=== PATIENT | male | born 2000 | race African-American/Black ===

== ENCOUNTER 2025-01-24 23:10 | Emergency (ER) | payer SELFPAY ==
--- OUTSIDE RECORDS SUMMARY | 2025-01-24 23:24 | XMS_ITS | Encounter Summary ---
Author Organization [facility] Address [facility] [place] [address] Care Team Providers Care Clock Smith Name Role Phone April Glasgow MD Primary Care Provider [phone] PcpEstelle APRN Primary Care Provider Unavailabl e Source Comments In the event this information is protected by the Federal Confidentiality of Alcohol and Drug AbusePatient Records regulations: The Federal rules restrict any use of the information to criminally investigate or prosecute any alcohol or drug abuse patient.[facility] Encounter Details Date Type Department Care Team (Latest Contact Info) Description 02/04/2005 Prob Sum Review Provider, Cc Social History Tobacco Use Types Packs/Day Years Used Date Smoking Tobacco: Never Assessed Alcohol Use Standard Drinks/Week Comments Not Asked 0 (1 standard drink = 0.6 oz pur e alcohol) Sex and Gender Information Value Date Recorded Sex Assigned at Not on file Legal Sex Male 9:50 AM EST Gender Identity Not on file Sexual Orientation Not on file documented as of this encounter Plan of Treatment Not on file documented as of this encounter Visit Diagnoses Not on filedocumented in this encounter Care Teams Clock Smith Relationship Specialty Start Date End Date April Glasgow MD [address] [place] [address] PCP - General 02/02/02 04/07/17 Pcp, No, [employer] PCP - General Family Medicine 04/08/17 10/26/17 documented as of this encounter
--- OUTSIDE RECORDS SUMMARY | 2025-01-24 23:24 | XMS_ITS | Clinical Summary ---
Author Organization [facility] Address [address] [place] [address] Care Team Providers Care Parboiler Name Role Phone Unavailable Primary Care Provider Unavailabl e Social History Tobacco Use Types Packs/Day Years Used Date Smoking Tobacco: Never Assessed Sex and Gender Information Value Date Recorded Sex Assigned at Not on file Legal Sex Male 7:06 PM EDT Gender Identity Not on file Sexual Orientation Not on file Plan of Treatment Not on file
[2025-01-24 23:46] VITALS: BP 131/73; PULSE 53; TEMP 37.1; O2SAT 98; BMI 20.6
--- NOTE | 2025-01-25 00:19 | ED_ITS ---
HPI - Male Genitourinary General Chief complaint: Urogenital-Male Stated complaint: UTI Time Seen by Provider: 01/25/25 00:15 Source: patient Mode of arrival: walk-in Limitations: no limitations History of Present Illness HPI Narrative: The gentleman is an otherwise healthy 24-year-old male who presents to the emergency department with dysuria. Today, he noticed that he had some weight and yellow discharge coming from the tip of his penis and he did have some discomfort at the tip of his penis. He is a circumcised male. He has a new sexual partner that is female. He did have rectal penetration. His partner did go to the hospital today as well to have an evaluation. Patient otherwise denies any dysuria, hematuria, urgency or frequency. No flank pain. No testicular pain. Patient denies any fever or chills. Related Data Previous Rx's ?Medication ?Instructions ?Recorded doxycycline monohydrate 100 mg 100 mg PO BID 14 days # 28 caps 01/25/25 capsule Allergies Allergy/AdvReac Type Severity Reaction Status Date / Time No Known Drug Allergies Allergy Verified 01/24/25 23:50 Review of Systems ROS Narrative 10 Systems were reviewed, and unless not ed in the [facility], all other systems are reviewed, unremarkable, or noncontributory. [facility] Social History Little interest or pleasure in doing things: not at all Feeling down, depressed, or hopeless: not at all Exam Narrative Exam Narrative: Prior to examining the patient, I have washed with hospital approved and provided Antiseptic Hand Wiping Rag Washer and have also applied gloves.? Prior to touching the patient, I asked for consent to examine the patient.? General: Alert and oriented, well nourished, mild distress. Eye: PERRL, EOMI, normal conjunctiva. HENT: Normocephalic, normal hearing, moist oral mucosa, no scleral icterus, Lungs: Clear to auscultation and percussion, non-labored respiration. No rhonchi, rales or wheezing Heart: Normal rate, regular rhythm, no murmur, gallop or edema. Abdomen: Soft, non-tender, non-distended, normal bowel sounds, no masses. Musculoskeletal: Normal range of motion and strength, no tenderness or swelling. Skin: Skin is warm, dry and pink, no rashes or lesions. Neurologic: Awake, alert, and oriented X3, CN II-XII intact. Psychiatric: Cooperative, appropriate mood and affect.? Following the conclusion of the examination, I have washed my hands thoroughly after removing examination gloves. Constitutional Vital Signs, click to edit/add: Last Vital Signs Temp 98.7 F 01/24/25 23:46 Pulse 53 L 01/24/25 23:46 Resp 20 01/24/25 23:46 BP 131/73 01/24/25 23:46 Pulse Ox 98 01/24/25 23:46 O2 Del Method Room Air 01/24/25 23:46 Course Course Hospital Course: I had an opportunity to discuss with the patient safe sex practices. His current partner is also getting treatment at another facility. The patient at this time states irrespective of whether it is an STD or urinary tract infection the patient desires treatment for also he can start with a clean Slate . This is also what his partner did. Patient does understand the risk versus benefits of doing this. Risks being allergic reaction to the antibiotics provided, diarrhea, vomiting or other reaction. With the benefit being appropriately treated but not necessarily knowing what caused it. He does not have multiple partners so this may be appropriate if both partners are doing the same thing. Vital Signs Vital signs: Vital Signs Temperature 98.7 F 01/24/25 23:46 Pulse Rate 53 L 01/24/25 23:46 Respiratory Rate 01/24/25 23:46 Blood Pressure 131/73 01/24/25 23:46 Pulse Oximetry 98 01/24/25 23:46 Oxygen Delivery Method Room Air 01/24/25 23:46 Temperature 98.7 F 01/24/25 23:46 Pulse Rate 53 L 01/24/25 23:46 Respiratory Rate 01/24/25 23:46 Blood Pressure 131/73 01/24/25 23:46 Pulse Oximetry 98 01/24/25 23:46 Oxygen Delivery Method Room Air 01/24/25 23:46 MDM - Male Genitourinary MDM Narrative Medical decision making narrative: Patient is a 24-year-old male who presents for urethral discharge associated with discomfort at the tip of the penis. Patient will receive prophylactic antibiotic therapy. Received Rocephin 500 mg intramuscularly, doxycycline 100 mg by mouth, Flagyl 2 g by mouth, and Zofran 4 mg ODT Medical Records Attestation: I reviewed the patient's medical records. Discharge Plan Discharge Chief Complaint: Urogenital-Male Clinical Impression: Urethritis Patient Disposition: Home, Self-Care Time of Disposition Decision: 00:24 Condition: Good Mode of Transportation: Private Vehicle Prescriptions / Home Meds: New doxycycline monohydrate 100 mg capsule 100 mg PO BID 14 Days Qty: 28 0RF Print Language: Taiwanese Instructions: Urethritis (ED) Additional Instructions: Thank you for trusting me with your care. Please take all of your antibiotics to completion. This is extremely important. Referrals: Physician,Non-Staff, MD [Primary Care Provider] - 1 week
[2025-01-25] MEDS: CEFTRIAXONE 500 MG, LIDOCAINE HCL/PF 1 ML IM (00:58)
[2025-01-25] MEDS: DOXYCYCLINE MONOHYDRATE 100 MG CAPSULE PO (01:00)
[2025-01-25] MEDS: ONDANSETRON 4 MG RAPDIS TABLET SL (01:00)
[2025-01-25] MEDS: METRONIDAZOLE 250 MG TABLET 2000 MG PO (01:00)
== END 2025-01-25 01:15 | disposition home or self-care (01) ==
PROVIDERS: Emergency Provider Emergency Medicine
DX: N34.2 Other urethritis (principal); R30.0 Dysuria
CPT/HCPCS: 99284; J0696; Q0162